=== PATIENT | female | born 1965 | race Caucasian/White ===

== ENCOUNTER 2025-04-15 12:01 | Outpatient (CLI) | payer MEDICARE, SELFPAY ==
--- NOTE | ~2025-04-15 | MM_ITS ---
EXAMINATION: MM screening anastasiya BI w raisa HISTORY: Screening mammogram TECHNIQUE: Craniocaudal and mediolateral oblique 3-D tomosynthesis images were obtained and synthetic 2-D images were generated. CAD analysis was submitted and interpreted. COMPARISON: 06/23/2017 and 06/21/2016 BREAST PARENCHYMAL COMPOSITION:Not Dense. The breasts are almost entirely fatty FINDINGS: No suspicious mass, calcification, or architectural distortion are identified in either jose alfredo ast to suggest malignancy. There has been no suspicious interval change. IMPRESSION: No mammographic evidence of malignancy. Recommend routine screening mammography in one year. BI-RADS Category 1: Negative Reviewed, dictated and finalized at location .
== END 2025-04-15 12:02 | disposition home or self-care (01) ==
LOC: CHSIMG 12:05
PROVIDERS: PCP Nurse Practitioner Adult Health; Visit Provider Family Medicine
DX: Z12.31 Encounter for screening mammogram for malignant neoplasm of breast (principal)
CPT/HCPCS: 77063; 77067

== ENCOUNTER 2025-06-13 01:01 | Day surgery (SDC) | payer MEDICARE, SELFPAY ==
--- OUTSIDE RECORDS SUMMARY | 2011-05-07 05:25 | XMS_ITS | Continuity of Care Document ---
Author Organization [facility] Address [address] [facility] [address] [facility] [address] [place] [phone] Phone Care Team Providers Care Spiritual Counselor Name Role Phone Isaac MURDOCK MD, Charli Unavailable Unavailable Procedures Procedure Date Office consultation, [facility] 1 X-ray exam of knee, 1 or2 views 011 X-ray exam of both knees, standing Xray Copy Advance Directives Directive Yes / No Effective Date File Name No Information Encounters Encounter Description Practice Location Reason(s) For Visit Diagnoses Date Provider Providers Copied on Encounter Office consultation , [facility] [facility], [address], [address] [place] [address], tel:[phone] [facility] LOC PRIM OSTEOART-L/L EG 1 Isaac Augustin. [address], [address] [place] [address], . tel:[phone] [facility], [address] [place] [address], [id number], tel:[phone] [facility] No Information 1 Administrative Provider. [address] [place] [address], [id number], . tel:[phone] Family History Family Member Type Diagnosis Age At Onset No Information Payers Payer name Insurance type Covered democrat ID Authoriza tion(s) No Information Social History Type Description Quantity Date Captured Comments Sex Female Smoking Status No Information Chief Complaint And Reason For Visit No Information Reason For Referral Reason For Referral No Information History Of Present Illness Encounter Date Complaint History Of Prese nt Illness No Information Functional Status Date Functional Assessmen t No Information Instructions Date Instruction Additional Infor mation No Information Assessments Type Assessment Date No Information Patient Care Teams Name Effective Dates (start - stop) Status Members No Information
--- OUTSIDE RECORDS SUMMARY | 2025-03-14 08:20 | XMS_ITS ---
Author Organization [facility] Address [address] [place], [place] [id number] Care Team Providers Care Project Intern Name Role Phone NILAY MALONE Unavailable [phone] Paulo Rojas Unavailable Unavailable REASON FOR VISIT *Foot Pain Medications Medication SIG (Take, Route, Frequency, Duration) Notes Start Date End Date Status Ozempic Active Atorvastatin Calcium 20 MG 1 tablet Oral ly Once a day Active Social History Tobacco Use: Social History Observation Description Date Details (start date - stop date) Current Smoker NA - NA Sex Assigned At : Social History Observation Description Sex Assigned At Female Tobacco Control (Standard) Question Answer Notes Tobacco use: Current smoker How often do you smoke cigarettes? Every day How many cigarettes a day do you smoke? 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 The patient was given after care instructions. Follow up in two weeks to debride and re-ablate as needed. 03/14/2025 Metatarsalgia, right foot (ICD-10 - M77.41) Metatarsalgia: I discussed anti-inflammatory treatment options and various means of immobilization with the patient. I educated the patient on icing and stretching, supportive shoegear, and the use of orthotic devices and bracing. 03/14/2025 Metatarsalgia, left foot (ICD-10 - M77.42) Patient has orthotics but doesnt wear them. She will bring shoes and orthotics to next visit to eval and add metatarsal pads. She has decided to return prn. Plan Of Treatment Treatment Notes Assessment Notes Other eccrine sweat disorders Porokeratosis: The lesions were debrided to normal appearing skin and then chemically ablated with pyrogallic acid and covered with an occlusive dressing. The patient was given after care instructions. Follow up in two weeks to debride and re-ablate as needed. Metatarsalgia, right foot Metatarsalgia: I discussed anti-inflammatory treatment options and various means of immobilization with the patient. I educated the patient on icing and stretching, supportive shoegear, and the use of orthotic devices and bracing. Metatarsalgia, left foot Patient has ort hotics but doesnt wear them. She will bring shoes and orthotics to next visit to eval and add metatarsal pads. She has decided to return prn. Progress Notes * Merari VALDEZB: 6 (60 yo F)Acc No.[id number]:03/14/2025 Patient: Nika ELLINGTON Provider: Sabas MALONE :1965 A ge:59 Y S ex:Female Date:03/14/2025 Address:[address] [facility], [facility] [address] [id number] Subjective: * Chief Complaints: * 1 . *Foot Pain. * HPI: H PI: Follow Up Visit P sarah presents for follow-up visit for porokeratosis check. Patient states that there is some pain on both feet like she was told about but states that it is nothing compared to what it was before. , MA: francoise. * ROS: G eneral / Constitutional: Patient denies c hills, fever, weakness, night sweats. M usculoskeletal: Patient denies c hildhood foot problems, weakness. ? P eripheral Vascular: Patient denies u lceration of feet, cold extremities. ? S kin: Patient denies u lcerations, discoloration. P sarah complains of c alluses and corns. N eurologic: Patient denies b alance difficulty, confusion, difficulty speaking, dizziness. * Medical History: N europathy, Leg/Feet cramps, Arthritis, Diabetic, High blood pressure. * Surgical History: r ight foot/ankle fusion . * Family History: F ather: heart disease. M other: arthritis, Diabetic. * Social History: T obacco Use: T obacco Control (Standard) T obacco use: C urrent smoker, H ow often do you smoke cigarettes? E very day, H ow many cigarettes a day do you smoke? 5 or less. * Medications: T emir Ozempic , Taking Atorvastatin Calcium 20 MG Tablet 1 tablet Orally Once a day , Medication List reviewed and reconciled with the patient Objective: * Vitals: S hoe Size: 10, Wt:185lbs, Wt-k.92 kg, Ht: 65 in, Ht-cm: 165.1 cm, BMI:30.78Index, Body Surface Area: 1.96. * Examination: C onstitutional: Constitutional T he patient is awake, alert, well developed, well groomed and well nourished. D ermatologic: Skin findings: S kin is warm, dry, supple with no breaks in the skin. Hypertrophic / hyperkeratotic lesion: p lantar aspect of the left 5th metatarsal head, plantar aspect of the left and right 1st metatarsal head. All lesions have a nucleated core post debridement. V ascular: Dorsalis pedis pulse: 2 /4, bilateral. Posterior tibial pulse: 2 /4, bilateral. Capillary refill: l ess than 3 seconds. Edema: N o edema, bilateral. N eurologic: Gross sensation G david sensation is intact to light touch.? M usculoskeletal: Muscle Strength M uscle strength is 5/5 in regards to dorsiflexion, plantarflexion, inversion, and eversion in bilateral lower extremities. Pain on palpation P ain on palpation to the plantar aspect of metatarsal heads 1 bilateral and 5th left. Assessment: * Assessment: 1. 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 M etatarsalgia, right foot - M77.41 3 . M etatarsalgia, left foot - M77.42 Plan: * Treatment: 2. M etatarsalgia, right foot Notes: Metatarsalgia: I discussed anti-inflammatory treatment options and various means of immobilization with the patient. I educated the patient on icing and stretching, supportive shoegear, and the use of orthotic devices and bracing. 3. M etatarsalgia, left foot Notes: Patient has orthotics but doesnt wear them. She will bring shoes and orthotics to next visit to eval and add metatarsal pads. She has decided to return prn. * Immunizations: Immunization record has been reviewed and updated. * Billing Information: * Visit Code: 33902 Office Visit, Est Pt., Level 3. * Procedure Codes: * Electronic signature of DAYSI MALONE DPM on 06/13/2025 at 01:05 AM CDT Sign off status: Pending * Provider: Sabas MALONE Date: 0 03/14/2025 Generated for Tracy guzman/Miles/Tommy on: 0 06/13/2025 01:05 AM CDT History and Physical Notes * HPI (History of Present Illness) Category Sub-Category Detail Notes Category Not es HPI Follow Up Visit Patient presents for follow-up visit for porokeratosis check. Patient states that there is some pain on both feet like she was told about but states that it is nothing compared to what it was before. , MA: mca Examination Category Sub-Category Detail Notes Category Not es Dermatologic Skin findings: Skin is warm, dr richmond, supple with no breaks in the skin Hypertrophic / hyperkeratotic lesion: pl cecil aspect of the left 5th metatarsal head, plantar aspect of the left and right 1st metatarsal head. All lesions have a nucleated core post debridement Neurologic Gross sensation Gross sensation is intact to light touch Vascular Dorsalis pedis pulse: 2/4, bilateral Edema: No edema, bilateral Capillary refill: less than 3 seconds Posterior tibial pulse: 2/4, bilateral Musculoskeletal Muscle Strength Muscle strength is 5/5 in regards to dorsiflexion, plantarflexion, inversion, and eversion in bilateral lower extremities Pain on palpation Pain on palpation to the plantar aspect of metatarsal heads 1 bilateral and 5th left Constitutional Constitutional The patient is a wake, alert, well developed, well groomed and well nourished
--- OUTSIDE RECORDS SUMMARY | 2025-04-18 06:10 | XMS_ITS ---
Author Organization [facility] Address [address] [place], [place] [id number] Care Team Providers Care Banking Paralegal Name Role Phone NILAY MALONE Unavailable [phone] Paulo Rojas Unavailable Unavailable REASON FOR VISIT *Callus Care Medications Medication SIG (Take, Route, Frequency, Duration) [...] les s Vital Signs Height 65 in 04/18/2025 Weight 185 lbs 04/18/2025 BMI 30.78 kg/m2 04/18/2025 Height-cm 165.1 cm 04/18/2025 Weight-kg 83.92 kg 04/18/2025 Encounters Encounter Location Date Provider Diagnosis [address] [id number] 04/18/2025 NILAY MALONE Other eccrine sweat disorders L74.8 ; Metatarsalgia, right foot M77.41 and Metatarsalgia, left foot M77.42 Assessments Encounter Date Diagnosis (ICD Code) Assessment Notes Treatment Notes Treatment Clinical Notes Section Notes 04/18/2025 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 The patient was given after care instructions. Follow up in two weeks to debride and re-ablate as needed. 04/18/2025 Metatarsalgia, right foot (ICD-10 - M77.41) Metatarsalgia: I discussed anti-inflammatory treatment options and various means of immobilization with the patient. I educated the patient on icing and stretching, supportive shoegear, and the use of orthotic devices and bracing. 04/18/2025 Metatarsalgia, left foot (ICD-10 - M77.42) Patient could not find her old orthotics. She will consider orthotics to next visit to eval and [...] devices and bracing. Metatarsalgia, left foot Patient could n ot find her old orthotics. She will consider orthotics to next visit to eval and add metatarsal pads. She has decided to return prn. Progress Notes * Merari VALDEZB: 6 (60 yo F)Acc No.[id number]:04/18/2025 Patient: Morelia OBEDStarra Provider: Sabas MALONE :1965 A ge:59 Y S ex:Female Date:04/18/2025 Address:[address] [facility], [facility] [address] [id number] Subjective: * Chief Complaints: * 1 . *Callus Care. * HPI: H PI[facility] bilateral calluses. Patient states that they have grown back and feel like walking on rocks again. She states that as soon as they are shaved down her feet feel so much better. She forgot to get exfoliating stone, lotion and otc orthotics. She will get them later today, MA: francoise. * ROS: G eneral / Constitutional: Patient denies c hills, fever, weakness, night sweats. M usculoskeletal: Patient denies c hildhood foot problems, weakness. ? P eripheral Vascular: Patient denies u lceration of feet, cold extremities. ? S kin: Patient denies u lcerations, discoloration. P atient complains of c alluses and corns. N [...] you smoke? 5 or less. * Medications: Priya Zhu , Taking Atorvastatin Calcium 20 MG Tablet [...] edema, bilateral. N eurologic: Gross sensation G ross sensation is intact to light touch.? M [...] 3. M etatarsalgia, left foot Notes: Patient could not find her old orthotics. She will consider orthotics to next visit to eval and add metatarsal pads. She has decided to return prn. * Immunizations: Immunization record has been reviewed and updated. * Billing Information: * Visit Code: 25959 Office Visit, Est Pt., Level 3. * Procedure Codes: * Electronic signature of DAYSI MALONE DPM on 06/13/2025 at 01:04 AM CDT Sign off status: Pending * Provider: Sabas MALONE Date: 0 04/18/2025 Generated for Tracy Montez/Tommy on: 0 06/13/2025 01:04 AM CDT History and Physical Notes * HPI (History of Present Illness) Category Sub-Category Detail Notes Category Not es HPI Follow Up Visit Patient presents for follow-up visit for bilateral calluses. Patient states that they have grown back and feel like walking on rocks again. She states that as soon as they are shaved down her feet feel so much better. She forgot to get exfoliating stone, lotion and otc orthotics. She will get them later today, MA: francoise Examination Category Sub-Category Detail Notes Category Not es Dermatologic Skin findings: Skin is warm, dr fragoso, supple with no breaks in the skin [...]
--- OUTSIDE RECORDS SUMMARY | 2025-05-30 06:10 | XMS_ITS ---
Author Organization [facility] Address [address] [place], [place] [id number] Care Team Providers Care Janitor Name Role Phone NILAY MALONE Unavailable [phone] Paulo Rojas Unavailable Unavailable Allergies No Known Allergies REASON FOR VISIT *Callus Care Medications Medication SIG (Take, Route, Frequency, Duration) Notes Start Date End Date Status Ozempic Active Atorvastatin Calcium 20 MG 1 tablet Oral ly Once a day Active Social History Sex Assigned At : Social History Observation Description Sex Assigned At Female Vital Signs Height 65 in 05/30/2025 Weight 185 lbs 05/30/2025 BMI 30.78 kg/m2 05/30/2025 Height-cm 165.1 cm 05/30/2025 Weight-kg 83.92 kg 05/30/2025 Encounters Encounter Location Date Provider Diagnosis [address] [id number] 05/30/2025 NILAY MALONE Other eccrine sweat disorders L74.8 ; Metatarsalgia, right foot M77.41 and Metatarsalgia, left foot M77.42 Assessments Encounter Date Diagnosis (ICD Code) Assessment Notes Treatment Notes Treatment Clinical Notes Section Notes 05/30/2025 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 The patient was given after care instructions. Follow up in two weeks to debride and re-ablate as needed. 05/30/2025 Metatarsalgia, right foot (ICD-10 - M77.41) Metatarsalgia: I discussed anti-inflammatory treatment options and various means of immobilization with the patient. I educated the patient on icing and stretching, supportive shoegear, and the use of orthotic devices and bracing. 05/30/2025 Metatarsalgia, left foot (ICD-10 - M77.42) Patient [...] pads. She has decided to return prn. Next Appt Details Follow Up: 2 Weeks, Reason: Debride and ablate porokeratosis prn (pyrogallic acid) Progress Notes * Merari VALDEZB: 6 (60 yo F)Acc No.[id number]:05/30/2025 Patient: Nika ELLINGTON Provider: Sabas MALONE :1965 A ge:60 Y S ex:Female Date:05/30/2025 Address:[address] [place] [address], [address] [place], [place] [id number] Subjective: * Chief Complaints: * 1 . *Callus Care. * HPI: H PI: General care P atient presents to the office for diabetic foot care. Patient states that their nails are thickened, elongated and painful. Patient states that it is aggravated by shoe gear. Onset is gradual., Patient denies taking blood thinners., Date last seen by Dr. Rojas was 04/2025., Initials nd. * ROS: G eneral / Constitutional: Patient [...] History: r ight foot/ankle fusion . * Hospitalization/Major Diagno stic Procedure: D enies Past Hospitalization. * Family History: F ather: heart disease. M other: arthritis, Diabetic. * Medications: T emir Zhu , Taking Atorvastatin Calcium 20 MG Tablet 1 tablet Orally Once a day , Medication List reviewed and reconciled with the patient * Allergies: N .K.D.A. Objective: * Vitals: S hoe Size: 10, Wt:185lbs, Wt-k.92 kg, Ht: 65 in, Ht-cm: 165.1 cm, BMI:30.78Index, Body Surface Area: 1.96. * Examination: C onstitutional: Constitutional T he patient is awake, alert, well developed, well groomed and well nourished. D ermatologic: Skin findings: S amanda is warm, dry, supple with no breaks [...] She has decided to return prn. * Follow Up: 2 Weeks (Reason: Debride and ablate porokeratosis prn (pyrogallic acid)) * Billing Information: * Visit Code: 52786 Office Visit, Est Pt., Level 3. * Procedure Codes: * Electronic signature of DAYSI MALONE DPM on 06/13/2025 at 01:05 AM CDT Sign off status: Pending * Provider: Sabas MALONE Date: 0 05/30/2025 Generated for Tracy guzman/Miles/Tommy on: 0 06/13/2025 01:05 AM CDT History and Physical Notes * HPI (History of Present Illness) Category Sub-Category Detail Notes Category Not es HPI General care Patient presents to the office for diabetic foot care. Patient states that their nails are thickened, elongated and painful. Patient states that it is aggravated by shoe gear. Onset is gradual., Patient denies taking blood thinners., Date last seen by Dr. Rojas was 04/2025., Initials nd Examination Category Sub-Category Detail Notes Category Not [...]
[2025-05-30 14:46] VITALS: BMI 29.4
--- OUTSIDE RECORDS SUMMARY | 2025-06-13 01:04 | XMS_ITS | Patient Health Record ---
Author Organization [facility] Address [address] [place], [place] [id number] Care Team Providers Care State Game Warden Name Role Phone FAISAL NILAY Unavailable [phone] Paulo Rojas Unavailable Unavailable AIDAN WATTS Unavailable [phone] Allergies No Known Allergies Reason For Referral No Information Medications Medication SIG (Take, Route, Frequency, Duration) Notes Start Date End Date Status Ozempic Active Atorvastatin Calcium 20 MG 1 tablet Oral ly Once a day Active Immunizations Vaccine Route Administration Date Status Comme nts Tdap Unknown 09/04/2019 Administered Tdap Unknown 09/04/2019 Administered Tdap Unknown 09/04/2019 Administered Tdap Unknown 09/05/2019 Administered Tdap Unknown 09/05/2019 Administered Tdap Unknown 09/05/2019 Administered Pneumococcal polysaccharide [id number] Unknown 10/28/2020 Ad ministered Pneumococcal polysaccharide PPV23 Unknown 10/28/2020 Ad ministered Pneumococcal polysaccharide PPV23 Unknown 10/28/2020 Ad ministered Influenza, quadrivalent, spl it, preservative free, 3 years or older Unknown 10/28/2020 Administered Influenza, quadrivalent, spl it, preservative free, 3 years or older Unknown 10/28/2020 Administered Influenza, quadrivalent, spl it, preservative free, 3 years or older Unknown 10/28/2020 Administered Influenza, quadrivalent, spl it virus Unknown 09/04/2019 Administered Influenza, quadrivalent, spl it virus Unknown 09/04/2019 Administered Influenza, quadrivalent, spl it virus Unknown 09/04/2019 Administered Influenza, quadrivalent, spl it virus Unknown 10/28/2020 Administered Influenza, quadrivalent, spl it virus Unknown 10/28/2020 Administered Influenza, quadrivalent, spl it virus Unknown 10/28/2020 Administered Social History Sex Assigned At : Social History Observation Description Sex Assigned At Female Vital Signs Height-cm 165.1 cm 05/30/2025 Weight-kg 83.92 kg 05/30/2025 Height 65 in 05/30/2025 Weight 185 lbs 05/30/2025 BMI 30.78 kg/m2 05/30/2025 Encounters Encounter Location Date Provider Diagnosis [address] [id number] 03/14/2025 NILAY MALONE Other eccrine sweat disorders L74.8 ; Metatarsalgia, right foot M77.41 and Metatarsalgia, left foot M77.[address] [id number] 04/18/2025 NILAY MALONE Other eccrine sweat disorders L74.8 ; Metatarsalgia, right foot M77.41 and Metatarsalgia, left foot M77.[address] [id number] 05/30/2025 NILAY MALONE Other eccrine sweat disorders L74.8 ; Metatarsalgia, right foot M77.41 and Metatarsalgia, left foot M77.[address] [id number] 02/21/2025 AIDAN WATTS Other eccrine sweat disorders L74.8 ; Metatarsalgia, right foot M77.41 ; Metatarsalgia, left foot M77.42 ; Left foot pain M79.672 and Pain in right foot M79.671 Assessments Encounter Date Diagnosis (ICD Code) Assessment Notes Treatment Notes Treatment Clinical Notes Section Notes 02/21/2025 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 The patient was given after care instructions. Follow up in two weeks to debride and re-ablate as needed. 02/21/2025 Metatarsalgia, right foot (ICD-10 - M77.41) Metatarsalgia: I discussed anti-inflammatory treatment options and various means of immobilization with the patient. I educated the patient on icing and stretching, supportive shoegear, and the use of orthotic devices and bracing. 03/14/2025 Other eccrine sweat disorders (ICD-10 - [...] use of orthotic devices and bracing. 04/18/2025 Other eccrine sweat disorders (ICD-10 - [...] use of orthotic devices and bracing. 05/30/2025 Other eccrine sweat disorders (ICD-10 - [...] pads. She has decided to return prn. 04/18/2025 Metatarsalgia, left foot (ICD-10 - M77.42) Patient could not find her old orthotics. She will consider orthotics to next visit to eval and add metatarsal pads. She has decided to return prn. 03/14/2025 Metatarsalgia, left foot (ICD-10 - M77.42) Patient has orthotics but doesnt wear them. She will bring shoes and orthotics to next visit to eval and add metatarsal pads. She has decided to return prn. 02/21/2025 Metatarsalgia, left foot (ICD-10 - M77.42) 02/21/2025 Left foot pain (ICD-10 - M79.672) 02/21/2025 Pain in right foot (ICD-10 - M79.671) Plan Of Treatment No Information Insurance Providers Payer Name Payer Address Payer Phone Subscriber Number Group Number Insured Name Patient Relationship to Insured Coverage Start Date Coverage End Date [facility] [address] [address] [place], [place] [id number] Nika Ring Self - patient is the insured Medical (General) History Medical History History ICD Code neuropathy Leg/Feet cramps Arthritis Diabetic high blood pressure Surgical History Surgery Date(Month/Year) right foot/ankle fusion
--- OUTSIDE RECORDS SUMMARY | 2025-06-13 01:05 | XMS_ITS | Clinical Summary ---
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 This disclosure is being madepursuant to the Care Everywhere program and may not contain all information available regarding this patient. Last updated 18.[facility] Encounters Date Type Department Care Team Description 04/02/2025 Travel from Last 3 Months Social History Tobacco Use Types Packs/Day Years Used Date Smoking Tobacco: Never Assessed Comments Unknown Sex and Gender Information Value Date Recorded Sex Assigned at Not on file Legal Sex Female 1:13 PM CDT Gender Identity Not on file Sexual Orientation Not on file Plan of Treatment Upcoming Encounters Date Type Department Care Team (Late st Contact Info) Description 06/20/2025 1:00 PM CDT Procedure visit [facility] [address] [place] [phone] 06/20/2025 1:30 PM CDT Office Visit [facility] [address] [place] [phone] India Walsh, 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 [address] [place] [address] [facility] [place] [address] Health Maintenance Due Date Last Done Comments COLOGUARD (AGES 45-75) - COL ON CA SCREENING 1966 COLON MONITORING 1966 COLONOSCOPY - COLON CA SCREENING 1966 CT COLONOGRAPHY - COLON CA SCREENING 1966 Colorectal Cancer Screening 1966 FIT - COLON CA SCREENING 1966 FLEX SIG - COLON CA SCREENING 1966 LIPID TESTING 1966 MAMMOGRAM 1966 HIV SCREENING 1981 HEPATITIS C SCREENING 04/14/1984 DTAP/TDAP/TD VACCINES (1 - Tdap) 1985 HEPATITIS B VACCINE (1 of 3 - 19+ 3-dose series) 1985 PAP SMEAR 1987 PNEUMOCOCCAL VACCINE 50+ (1 of 1 - PCV) 2016 ZOSTER VACCINE (1 of 2) 2016 COVID-19 VACCINE (1 - 2023-2 5 season) 2024 DEPRESSION SCREENING 10/24/2024 MEDICARE AWV CALENDAR YEAR 2024 INFLUENZA VACCINE (#1) 2025 HIB VACCINE Aged Out No longer eligi ble based on patient's age to complete this topic HPV VACCINE Aged Out No longer eligi ble based on patient's age to complete this topic MENINGOCOCCAL (Group B) VACC INE SHARED DECISION-MAKING Aged Out No longer eligibl e based on patient's age to complete this topic MENINGOCOCCAL GROUPS A/C/Y/W VACCINE Aged Out No longer eligible b ased on patient's age to complete this topic Insurance MANAGED MEDICARE ADV
[2025-06-13 10:35] VITALS: BP 166/70; PULSE 83; RESP 16; TEMP 36.4; O2SAT 99; BMI 26.9
[2025-06-13] MEDS: LACTATED RINGERS 1,000 ML 150 ML IV CONT (10:45)
--- NOTE | 2025-06-13 11:04 | WPDANESEPPF ---
Anes - Initial Pre Proc Eval Procedure: Operation Date: 06/13/25 12:30 Proposed Procedures p Diagnostic Colonoscopy - Carlos Eaton MD Date/Time: 06/13/25 11:04 Surgeon: Carlos Eaton MD Pre Op Diagnosis: Other fecal abnormalities Patient Data Age: 60 Gender: F Height: 1.68 m Weight: 75.7 kg Last Vital Signs Temp 36.4 C L 06/13/25 10:35 Pulse 83 06/13/25 10:35 Resp 16 06/13/25 10:35 BP 166/70 H 06/13/25 10:35 Pulse Ox 99 06/13/25 10:35 O2 Del Method Room Air 06/13/25 10:35 Allergies Allergy/AdvReac Type Severity Reaction Status Date / Time No Known Allergies Allergy Mild NKA Verified 06/13/25 10:33 Home Medications ?Medication ?Instructions ?Recorded ?Confirmed ?Type atorvastatin 20 mg tablet 20 mg PO QPM 05/30/25 06/13/25 History semaglutide 1 mg/dose (4 mg/3 mL) 1 mg subcut WEEKLY 05/30/25 05/30/25 History subcutaneous pen injector (Ozempic) Patient hx anesthesia problems: none Family hx anesthesia problems: none Results Review: All pre-operative results and documents have been reviewed as part of the pre-operative evaluation. [facility] Past Medical History Medical History (Updated 06/13/25 @ 11:08 by Charli Hernandez MD) Marijuana abuse Diabetes Hyperlipidemia Surgical History Surgical History (Updated 06/13/25 @ 11:08 by Charli Hernandez MD) History of ankle surgery H/O arthroscopic knee surgery Social History Social History Alcohol intake: never Substance use: current Substance use type: marijuana Other substance usage details: smokes marijuana daily Living arrangements: alone Spiritual care concerns: No Anes - Eval Final PreProcedure Day of Procedure 06/13/25 11:04 Patient weight: overweight Heart: regular rate and rhythm Lungs: clear to auscultation Airway: Mallampati scale class II Neurological: alert and oriented Last oral intake: >/= 8 hours ASA classification: III Emergent: no Anesthetic plan: proceed Anesthesia type and monitoring: general GIVS and standard monitoring Results Review: All pre-operative results and documents have been reviewed as part of the pre-operative evaluation. Informed Consent: The patient's anesthetic plan and its attendant risks and benefits were discussed with the patient/family/POA. Questions were solicited and answers provided to the satisfaction of the patient/family/POA.
--- NOTE | 2025-06-13 12:23 | PM.IMHP ---
H&P: HPI History of Present Illness Date/Time: 06/13/25 12:23 Chief Complaint: Screening colonoscopy Narrative: This is the patient's first colonoscopy. There are no GI symptoms and there is no family history of colorectal cancer. Review of Systems Review of Systems: All systems reviewed & are unremarkable except as noted in HPI and below PMFSH Past Medical History Medical History (Updated 06/13/25 @ 12:23 by Carlos Eaton MD) Marijuana abuse Diabetes Hyperlipidemia Surgical History Surgical History (Updated 06/13/25 @ 11:08 by Charli Hernandez MD) History of ankle surgery H/O arthroscopic knee surgery Social History Social History Alcohol intake: never Substance use: current Substance use type: marijuana Other substance usage details: smokes marijuana daily Living arrangements: alone Spiritual care concerns: No Meds Home Medications and Allergies Home Medications ?Medication ?Instructions ?Recorded ?Confirmed ?Type atorvastatin 20 mg tablet 20 mg PO QPM 05/30/25 06/13/25 History semaglutide 1 mg/dose (4 mg/3 mL) 1 mg subcut WEEKLY 05/30/25 05/30/25 History subcutaneous pen injector (Ozempic) Allergies Allergy/AdvReac Type Severity Reaction Status Date / Time No Known Allergies Allergy Mild NKA Verified 06/13/25 10:33 Vital Signs Vital Signs - 24 hr 06/13/25 10:35 Temperature 97.5 F L Pulse Rate 83 Respiratory Rate 16 Blood Pressure 166/70 H Pulse Oximetry 99 Oxygen Delivery Room Air Exam Const: General: cooperative and healthy appearing Resp: Effort & Inspection: normal respiratory effort and able to speak in complete sentences Auscultation: clear to auscultation bilaterally Cardio: Rate: regular rate Rhythm: regular rhythm GI: Inspection: normal to inspection GI Palp: No No hepatosplenomegaly present Auscultation: normal bowel sounds Rectal Exam: deferred Skin: General skin exam: normal color Psych: Appearance: grossly normal Mental Status: mental status grossly normal Assessment and Plan Assessment and plan (1) Encounter for screening colonoscopy: Code(s): Z12.11 - Encounter for screening for malignant neoplasm of colon Status: Acute Assessment and Plan: The patient is deemed a good candidate for the procedure. Consent signed. Will proceed.
[2025-06-13 12:48] VITALS: BP 116/68; PULSE 81; RESP 17; O2SAT 99
[2025-06-13 12:58] VITALS: BP 125/79; PULSE 81; RESP 20; O2SAT 99
[2025-06-13 13:08] VITALS: BP 139/94; PULSE 77; RESP 16; O2SAT 99
== END 2025-06-13 13:17 | disposition home or self-care (01) ==
PROVIDERS: Visit Provider Internal Medicine Gastroenterology
PROC: 0DJD8ZZ Inspection of Lower Intestinal Tract, Via Natural or Artificial Opening Endoscopic (ICD-10-PCS; CPT 45378; principal; 2025-06-13 12:30)
DX: Z12.11 Encounter for screening for malignant neoplasm of colon (principal); K64.8 Other hemorrhoids; K57.30 Diverticulosis of large intestine without perforation or abscess without bleeding; E78.5 Hyperlipidemia, unspecified; E11.9 Type 2 diabetes mellitus without complications; F12.90 Cannabis use, unspecified, uncomplicated; Z79.85 Long-term (current) use of injectable non-insulin antidiabetic drugs; Z98.890 Other specified postprocedural states
CPT/HCPCS: G0121; 82948; J2704; J7120